=== PATIENT | female | born 1980 | race Hispanic/Latino ===

== ENCOUNTER 2022-04-12 14:41 | Emergency (ER) | payer OTHER ==
[~2022-04-12] VITALS: Ht 157.5 cm; Wt 55.8 kg
[2022-04-12] MEDS ORDERED: CYCLOBENZAPRINE HCL 10 MG TABLET PO ONE (15:00)
[2022-04-12] MEDS ORDERED: KETOROLAC 30MG VIAL (30MG/ML) IVP ONE (15:00)
[2022-04-12] MEDS ORDERED: CYCL10TA16 PO (15:33)
[2022-04-12] MEDS ORDERED: IBUP-2070 PO (15:33)
[2022-04-12 16:38] VITALS: BP 122/74
== END 2022-04-12 16:46 | disposition home or self-care (01) ==
LOC: EDH 14:41
DX: S76.011A Strain of muscle, fascia and tendon of right hip, initial encounter (principal); S86.911A Strain of unspecified muscle(s) and tendon(s) at lower leg level, right leg, initial encounter; Z88.0 Allergy status to penicillin; Z79.1 Long term (current) use of non-steroidal anti-inflammatories (NSAID); X58.XXXA Exposure to other specified factors, initial encounter; Y93.89 Activity, other specified; Y92.89 Other specified places as the place of occurrence of the external cause; Y99.8 Other external cause status
CPT/HCPCS: 99284; 96374; 73502; 73562; J1885

== ENCOUNTER 2023-02-28 11:39 | Emergency (ER) | payer OTHER ==
[~2023-02-28] VITALS: Ht 167.6 cm; Wt 65.8 kg
[~2023-02-28 11:39] MED LIST: CYCL10TA16 PO; IBUP-2070 PO
[2023-02-28] MEDS ORDERED: KETOROLAC 30MG VIAL (30MG/ML) IVP ONE (12:30)
[2023-02-28] MEDS ORDERED: LACTATED RINGERS 1000ML 1,000 ML IV ONE (12:30)
[2023-02-28] MEDS ORDERED: METOCLOPRAMIDE 10 MG/2 ML VIAL IVP ONE (12:30)
[2023-02-28] MEDS ORDERED: FAMOTIDINE 20MG VIAL IV ONE (12:30)
[2023-02-28 14:32] VITALS: BP 156/84; PULSE 78; RESP 18; O2SAT 98
== END 2023-02-28 14:44 | disposition home or self-care (01) ==
LOC: EDH 11:39
DX: S76.011A Strain of muscle, fascia and tendon of right hip, initial encounter (principal); S70.01XA Contusion of right hip, initial encounter; Z79.899 Other long term (current) drug therapy; Z04.3 Encounter for examination and observation following other accident; Z88.0 Allergy status to penicillin; W01.0XXA Fall on same level from slipping, tripping and stumbling without subsequent striking against object, initial encounter; Y93.89 Activity, other specified; Y92.89 Other specified places as the place of occurrence of the external cause; Y99.8 Other external cause status
CPT/HCPCS: 99284; 96374; 96375; 82550; 36415; 73502; J7120; J3490; J1885; J2765